=== PATIENT | female | born 2000 | race African-American/Black ===

== ENCOUNTER 2024-03-14 04:46 | Emergency (ER) | payer MEDICAID ==
[~2024-03-14] VITALS: Ht 175.3 cm; Wt 78.0 kg
[2024-03-14 05:08] VITALS: O2SAT 98
[2024-03-14] MEDS: ACETAMINOPHEN 325MG TABLET PO STA (05:58)
[2024-03-14] MEDS: ACETAMINOPHEN 325MG TABLET PO ONE (05:58)
[2024-03-14] MEDS ORDERED: TOPUD PO (06:28)
[2024-03-14 06:43] VITALS: BP 110/74; PULSE 88; RESP 18; TEMP 97.7
== END 2024-03-14 06:43 | disposition home or self-care (01) ==
LOC: ER 04:46
DX: M79.18 Myalgia, other site (principal); F19.90 Other psychoactive substance use, unspecified, uncomplicated
CPT/HCPCS: 73090; 99283

== ENCOUNTER 2024-12-11 10:33 | Emergency (ER) | payer MEDICAID, OTHER ==
[~2024-12-11] VITALS: Ht 165.1 cm; Wt 64.0 kg
[~2024-12-11 10:33] MED LIST: TOPUD PO
[2024-12-11 10:36] VITALS: O2SAT 98
[2024-12-11] MEDS ORDERED: CEPH250C2 MT (11:32)
[2024-12-11 11:48] VITALS: BP 114/69; PULSE 80; RESP 16; TEMP 36.9; O2SAT 100
== END 2024-12-11 11:49 | disposition home or self-care (01) ==
LOC: ER 10:33
DX: N61.1 Abscess of the breast and nipple (principal)
CPT/HCPCS: 99283

== ENCOUNTER 2024-12-14 05:52 | Emergency (ER) | payer OTHER ==
[~2024-12-14] VITALS: Ht 167.6 cm; Wt 64.0 kg
[~2024-12-14 05:52] MED LIST changes: +CEPH250C2 MT
[2024-12-14 05:55] VITALS: BP 111/77; PULSE 77; RESP 18; TEMP 36.9; O2SAT 97
[2024-12-14] MEDS ORDERED: SULF1TAB48 PO (06:04)
[2024-12-14 06:15] VITALS: O2SAT 97
== END 2024-12-14 06:18 | disposition home or self-care (01) ==
LOC: ER 05:52
DX: N61.1 Abscess of the breast and nipple (principal)
CPT/HCPCS: 99283

== ENCOUNTER 2024-12-14 12:28 | Emergency (ER) | payer OTHER ==
[~2024-12-14] VITALS: Ht 172.7 cm; Wt 59.0 kg
[~2024-12-14 12:28] MED LIST changes: +SULF1TAB48 PO
[2024-12-14 13:02] VITALS: O2SAT 98
[2024-12-14 14:11] VITALS: BP 120/60; PULSE 70; RESP 14; TEMP 37; O2SAT 98
== END 2024-12-14 14:12 | disposition home or self-care (01) ==
LOC: ER 12:28
DX: N61.1 Abscess of the breast and nipple (principal); F19.90 Other psychoactive substance use, unspecified, uncomplicated
CPT/HCPCS: 99281